=== PATIENT | male | born 1985 | race Two or more races ===

== ENCOUNTER 2021-10-24 03:52 | Emergency (ER) | payer SELFPAY ==
[~2021-10-24] VITALS: Ht 157.5 cm; Wt 54.4 kg
--- NOTE | 2021-10-24 03:56 | NUR ---
BIBRA FROM THE STREETS "SOMEONE SHOVED A MASSAGE PLASTIC BALL DOWN THROAT" DENIES ANY SOB. SKIN COLOR WNL.
--- NOTE | 2021-10-24 04:21 | NUR ---
PRODUCTION LINE WELDER AT PT'S BEDSIDE
[2021-10-24] MEDS ORDERED: LORAZEPAM INJ 2 MG/ML VIAL ONE (04:45)
[2021-10-24] MEDS: LORAZEPAM INJ 2 MG/ML VIAL IM ONE ×2 (04:50→04:52)
[2021-10-24] MEDS ORDERED: LORAZEPAM 1 MG TABLET ONE (04:53)
--- NOTE | 2021-10-24 04:57 | NUR ---
PT REFUSED ATIVAN IM, WASTED ATIVAN 2MG & WASTED WITH KOBE WHARTON. ADMINISTERED ATIVAN 1MG PO ORDERED.
[2021-10-24 05:14] VITALS: BP 133/64
--- NOTE | 2021-10-24 05:14 | NUR ---
Patient discharged to home in stable condition. Written and verbal after care instructions given. Patient verbalizes understanding of instruction. pt ambulatory with a steady gait
== END 2021-10-24 05:15 | disposition home or self-care (01) ==
LOC: ER 03:57
DX: F45.8 Other somatoform disorders (principal); R09.89 Other specified symptoms and signs involving the circulatory and respiratory systems
CPT/HCPCS: 70360; 99283; J2060